=== PATIENT | female | born 1955 | race Caucasian/White ===

== ENCOUNTER 2016-05-14 11:30 | Emergency (ER) | payer MEDICARE ==
[2016-05-14] MEDS ORDERED: Adacel Vial IM ONE ×2 (11:34→12:45)
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
[2016-05-14 12:01] LABS: VBG BASE EXCESS 3.4 (-2.0-2.0); VBG CARBOXYHEMOGLOBIN 1.9 % T HGB (0.0-6.9); VBG HCO3- 29.6 meq/L (22-28); VBG HEMOGLOBIN 14.3; VBG O2 SATURATION 45.3 (95-100); VBG POTASSIUM 4.5 (3.5-5.1); VBG pH 7.38 (7.32-7.42)
[2016-05-14 12:13] LABS: BASOPHIL % 0.3 % (0.0-0.4); Eosinophil % 2.3 % (0.00-5.0); Granulocytes % 77.2 % (36.0-66.0); Lymphocytes % 13.2 % (24.0-44.0); Mean Cell Volume 85.8 fl (78-100); Mean Corpuscular Hemoglobin 25.8 pg (26-32); Mean Platelet Volume 9.4 fl (6-9.5); Platelet Count 221 K/mm3 (150-450); Red Blood Count 5.28 M/mm3 (4.1-5.4); Red Cell Distribution Width 18.6 % (11.5-14.0); White Blood Count 6.1 K/mm3 (4.0-10.5)
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
[2016-05-14 13:06] VITALS: BP 160/99; PULSE 89; O2SAT 97
[2016-05-14 14:04] LABS: ALBUMIN 3.6 g/dL (3.4-5.0); ANION GAP 14.2 MEQ/L (5-15); BILIRUBIN,TOTAL 0.5 mg/dL (0.2-1.0); Carbon Dioxide 28.2 mEq/L (21-32); Potassium 4.6 mEq/L (3.5-5.1); Total Protein 7.6 gm/dL (6.4-8.2)
== END 2016-05-14 13:05 | disposition home or self-care (01) ==
LOC: ED 11:30
DX: S80.12XA Contusion of left lower leg, initial encounter (principal); S00.93XA Contusion of unspecified part of head, initial encounter; S63.602A Unspecified sprain of left thumb, initial encounter; V54.5XXA Driver of pick-up truck or van injured in collision with heavy transport vehicle or bus in traffic accident, initial encounter; R73.03 Prediabetes; I10 Essential (primary) hypertension
CPT/HCPCS: 36000; 36415; 70450; 71010; 72125; 73130; 73590; 80053; 82805; 82947; 85025; 90471; 90715; 93041; 99285

== ENCOUNTER 2019-06-25 20:50 | Observation (INO) | payer MEDICARE ==
--- NOTE | 2019-06-25 20:53 | ERPHSYRPT ---
- History of Present Illness Time Seen by Provider: 06/25/19 21:10 Source: patient Exam Limitations: no limitations Physician History: Patient is a 64-year-old female presents to our ED via EMS for evaluation of near syncopal episode. Patient states she is been feeling nauseous and quite sick over the past several days. Patient saw her primary care doctor a few days ago for the same. Patient was given a dose of antibiotics. Patient was advised if she did not feel any better to come to our ED. Patient is here today because she has been feeling dizzy and near syncopal. Patient denies syncope and collapse. Patient symptoms are mild to moderate intensity. No specific worsening or improving factors. Patient is a diabetic. She has a history of hypertension. Patient has been taking all medications as recommended. No associated nausea or vomiting. No diarrhea. No chest pain or shortness of breath. Patient states she has not been drinking as much as usual. Patient states she has been urinating frequently. Patient states that she has been drinking less because she does not want to urinate as frequently as she has been. No associated fever. Patient voices no other complaint at this time. Patient advises staff that she lives alone with her dog. Witnessed: unwitnessed Prior Episodes: single episode today Timing/Duration: today Precipitating Factors: none Context: standing Loss of Consciousness: no loss of consciousness Charcter of event(s): felt faint, almost passed out Allergies/Adverse Reactions: No Known Drug Allergies Allergy (Unverified 06/25/19 21:18) Home Medications: Glimepiride 4 mg [Amaryl 4 mg] 4 mg PO DAILY 06/25/19 [History] Rosuvastatin Calcium 10 mg PO DAILY 06/25/19 [History] lisinopriL [Lisinopril] 5 mg PO DAILY 06/25/19 [History] Hx Tetanus, Diphtheria Vaccination/Date Given: No Hx Influenza Vaccination/Date Given: No Hx Pneumococcal Vaccination/Date Given: No - Past Medical History Pertinent Past Medical History: Yes Cardiac History: Hypertension Endocrine Medical History: Diabetes Type II (pre) GI Medical History: Other Other Medical History: COLON CANCER - Past Surgical History Past Surgical History: Yes Gastrointestinal: Colon Resection Female Surgical History: Hysterectomy - Social History Smoking Status: Never smoker Exposure to second hand smoke: No Drug Use: none Patient Lives Alone: No (here with a friend) Significant Family History: diabetes, hypertension - Review of Systems Constitutional: No Symptoms, No Fever, No Chills Eyes: No Symptoms Ears, Nose, & Throat: No Symptoms Respiratory: No Symptoms, No Cough, No Dyspnea Cardiac: No Symptoms, No Chest Pain, No Edema, No Syncope Abdominal/Gastrointestinal: No Symptoms, No Abdominal Pain, No Nausea, No Vomiting, No Diarrhea Genitourinary Symptoms: No Symptoms, No Dysuria Musculoskeletal: No Symptoms, No Back Pain, No Neck Pain Skin: No Symptoms, No Rash Neurological: No Symptoms, Dizziness, No Focal Weakness, No Parasthesia, No Sensory Changes, No Tremors Psychological: No Symptoms Endocrine: No Symptoms Hematologic/Lymphatic: No Symptoms Immunological/Allergic: No Symptoms All Other Systems: Reviewed and Negative Physical Exam - Nursing Vital Signs Nursing Vital Signs: Initial Vital Signs Temperature 97.9 F 06/25/19 20:59 Pulse Rate 80 06/25/19 20:59 Respiratory Rate 18 06/25/19 20:59 Blood Pressure 156/82 06/25/19 20:59 O2 Sat by Pulse Oximetry 100 06/25/19 20:59 Pain Scale Pain Intensity 0 - [place] Coma Scale Best Eye Response ([place]): (4) open spontaneously Best Verbal Response ([place]): (5) oriented Best Motor Response ([place]): (6) obeys commands [place] Total: 15 - Physical Exam General Appearance: no apparent distress, alert Eye Exam: bilateral eye: normal inspection, PERRL, EOMI Ears, Nose, Throat Exam: normal ENT inspection, pharynx normal, dry mucous membranes (Dry appearing oral mucous membranes.) Neck Exam: normal inspection, non-tender, supple, full range of motion Respiratory: normal breath sounds, lungs clear, No chest tenderness, No respiratory distress Cardiovascular: regular rate/rhythm, normal heart sounds, normal peripheral pulses, capillary refill <2 sec, No murmur, No pulse deficit Gastrointestinal: soft, No tenderness, No distention, No mass Rectal Exam: deferred Back Exam: normal inspection, normal range of motion, No CVA tenderness, No vertebral tenderness Extremity Exam: normal inspection, normal range of motion, pelvis stable, No tenderness Peripheral Pulses: dorsalis-pedis (R): 2+, dorsalis-pedis (L): 2+ Mental Status: alert, oriented x 3, 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 No opacity. No consolidation. No pleural effusion. No pneumothorax.), Reviewed by me - CT Exams Head CT Interpretation: Tele-radiologist Report (CT head negative for acute intracranial pathology.) Ordered Tests: Active Orders 24 hr Category Date Time Status Hospice Community Liaison STAT Care 06/25/19 20:54 Active EKG-ER Only STAT Care 06/25/19 20:53 Active IV Insertion STAT Care 06/25/19 20:53 Active Isolation, Initiate & Maintain Q4H Care 06/25/19 21:17 Active Pulse Oximetry (ED) STAT Care 06/25/19 20:53 Active CHEST 1 VIEW (PORTABLE) Stat Exams 06/25/19 20:54 Taken HEAD WITHOUT CONTRAST [CT] Stat Exams 06/25/19 21:16 Taken ACETAMINOPHEN Stat Lab 06/25/19 21:00 Completed CBC W DIFF Stat Lab 06/25/19 21:12 Completed CMP Stat Lab 06/25/19 21:12 Completed CULTURE,URINE Stat Lab 06/25/19 22:49 Received ETHYL ALCOHOL Stat Lab 06/25/19 21:00 Completed Manual Differential NC Stat Lab 06/25/19 21:12 Completed SALICYLATE Stat Lab 06/25/19 21:00 Completed TROPONIN Q3H Lab 06/25/19 21:12 Completed TROPONIN Q3H Lab 06/26/19 00:00 Ordered TROPONIN Q3H Lab 06/26/19 03:00 Ordered TROPONIN Q3H Lab 06/26/19 06:00 Ordered TROPONIN Q3H Lab 06/26/19 09:00 Ordered UA W/RFX UR CULTURE Stat Lab 06/25/19 22:49 Completed Urine Triage Profile Stat Lab 06/25/19 22:49 Completed Transfer Order Routine Transfer 06/25/19 Ordered Medication Summary Generic Name Dose Route Start Last Admin Trade Name Freq PRN Reason Stop Dose Admin Sodium Chloride 500 mls @ 500 mls/hr 06/25/19 22:39 06/25/19 22:41 Sodium Chloride 0.9% 500 Ml IV 06/25/19 23:38 500 mls/hr .Q1H ONE Administration Ceftriaxone Sodium/Dextrose 1 g in 50 mls @ 100 mls/hr 06/25/19 23:17 23:20 Rocephin 1 Gm-D5w 50 Ml Bag IV 06/25/19 23:46 100 mls/hr STAT STA 100 mls/hr Administration Discontinued Medications Generic Name Dose Route Start Last Admin Trade Name Adrianne PRN Reason Stop Dose Admin Sodium Chloride Confirm 06/25/19 22:40 Sodium Chloride 0.9% 500 Ml Administered 06/25/19 22:41 Dose 500 mls @ ud IV .STK-MED ONE Ceftriaxone Sodium/Dextrose Confirm 06/25/19 23:18 Rocephin 1 Gm-D5w 50 Ml Bag Administered 06/25/19 23:19 Dose 1 g in 50 mls @ ud IV .STK-MED ONE Lab/Rad Data: Laboratory Result Diagrams 06/25/19 21:12 06/25/19 21:12 Laboratory Results 06/25/19 06/25/19 06/25/19 Range/Units 22:49 22:49 21:12 WBC (4.0-10.5) K/mm3 RBC (4.1-5.4) M/mm3 Hgb (12.0-16.0) gm/dl Hct (35-47) % MCV (78-100) fl MCH (26-32) pg MCHC (32-36) g/dl RDW (11.5-14.0) % Plt Count (150-450) K/mm3 MPV (7.5-11.0) fl Segmented Neutrophils (36.0-66.0) % Lymphocytes (Manual) (24-44) % Monocytes (Manual) (0.0-12.0) % Eosinophils (Manual) (0.00-3.0) % Platelet Estimate (NORMAL) RBC Morphology Sodium (137-145) mmol/L Potassium (3.5-5.1) mmol/L Chloride (98-107) mmol/L Carbon Dioxide (22-30) mmol/L Anion Gap (5-15) MEQ/L BUN (7-17) mg/dL Creatinine (0.52-1.04) mg/dL Estimated GFR ML/MIN Glucose (74-106) mg/dL Calcium (8.4-10.2) mg/dL Total Bilirubin (0.2-1.3) mg/dL AST (14-36) U/L ALT (0-35) U/L Alkaline Phosphatase (38-126) U/L Troponin I 0.017 (0.000-0.034) ng/mL Serum Total Protein (6.3-8.2) g/dL Albumin (3.5-5.0) g/dL Urine Color YELLOW (YELLOW) Urine Appearance TURBID (CLEAR) Urine pH 5.0 (5-6) Ur Specific [place] 1.015 (1.005-1.025) Urine Protein 100 (Negative) Urine Ketones NEGATIVE (NEGATIVE) Urine Blood LARGE (0-5) Nima/ul Urine Nitrite NEGATIVE (NEGATIVE) Urine Bilirubin NEGATIVE (NEGATIVE) Urine Urobilinogen NEGATIVE (0-1) mg/dL Ur Leukocyte Esterase LARGE (NEGATIVE) Urine WBC (Auto) >100 (0-5) /HPF Urine RBC (Auto) >101 (0-2) /HPF U Epithel Cells (Auto) RARE (FEW) /HPF Urine Bacteria (Auto) RARE (NEGATIVE) /HPF U Non-Squamous Epi Cells RARE (FEW) /HPF Unidentified Crystals 2-5 (NEGATIVE) /HPF Urine Culture Reflexed YES (NO) Urine Glucose 150 (NEGATIVE) mg/dL Salicylates (2-20) mg/dL Urine Opiates Level NEGATIVE (NEGATIVE) Ur Methadone NEGATIVE (NEGATIVE) Acetaminophen (10-30) ug/ml Urine Barbiturates NEGATIVE (NEGATIVE) Ur Phencyclidine (PCP) NEGATIVE (NEGATIVE) Urine Amphetamine NEGATIVE (NEGATIVE) U Benzodiazepine Level NEGATIVE (NEGATIVE) Urine Cocaine NEGATIVE (NEGATIVE) Urine Marijuana (THC) POSITIVE (NEGATIVE) Ethyl Alcohol (0-10) mg/dL 06/25/19 06/25/19 06/25/19 Range/Units 21:12 21:12 21:00 WBC 10.7 H (4.0-10.5) K/mm3 RBC 3.95 L (4.1-5.4) M/mm3 Hgb 12.1 (12.0-16.0) gm/dl Hct 38.4 (35-47) % MCV 97.2 (78-100) fl MCH 30.6 (26-32) pg MCHC 31.5 L (32-36) g/dl RDW 15.1 H (11.5-14.0) % Plt Count 300 (150-450) K/mm3 MPV 8.8 (7.5-11.0) fl Segmented Neutrophils 84 H (36.0-66.0) % Lymphocytes (Manual) 10 L (24-44) % Monocytes (Manual) 5 (0.0-12.0) % Eosinophils (Manual) 1 (0.00-3.0) % Platelet Estimate NORMAL (NORMAL) RBC Morphology NORMAL Sodium 140 (137-145) mmol/L Potassium 5.2 H (3.5-5.1) mmol/L Chloride 112 H (98-107) mmol/L Carbon Dioxide 14 L* (22-30) mmol/L Anion Gap 20.0 H (5-15) MEQ/L BUN 53 H (7-17) mg/dL Creatinine 3.79 H (0.52-1.04) mg/dL Estimated GFR 12.7 ML/MIN Glucose 209 H (74-106) mg/dL Calcium 10.1 (8.4-10.2) mg/dL Total Bilirubin 0.50 (0.2-1.3) mg/dL AST 17 (14-36) U/L ALT 14 (0-35) U/L Alkaline Phosphatase 103 (38-126) U/L Troponin I (0.000-0.034) ng/mL Serum Total Protein 8.5 H (6.3-8.2) g/dL Albumin 4.5 (3.5-5.0) g/dL Urine Color (YELLOW) Urine Appearance (CLEAR) Urine pH (5-6) Ur Specific [place] (1.005-1.025) Urine Protein (Negative) Urine Ketones (NEGATIVE) Urine Blood (0-5) [place] Urine Nitrite (NEGATIVE) Urine Bilirubin (NEGATIVE) Urine Urobilinogen (0-1) mg/dL Ur Leukocyte Esterase (NEGATIVE) Urine WBC (Auto) (0-5) /HPF Urine RBC (Auto) (0-2) /HPF U Epithel Cells (Auto) (FEW) /HPF Urine Bacteria (Auto) (NEGATIVE) /HPF U Non-Squamous Epi Cells (FEW) /HPF Unidentified Crystals (NEGATIVE) /HPF Urine Culture Reflexed (NO) Urine Glucose (NEGATIVE) mg/dL Salicylates 1.1 L (2-20) mg/dL Urine Opiates Level (NEGATIVE) Ur Methadone (NEGATIVE) Acetaminophen < 10 L (10-30) ug/ml Urine Barbiturates (NEGATIVE) Ur Phencyclidine (PCP) (NEGATIVE) Urine Amphetamine (NEGATIVE) U Benzodiazepine Level (NEGATIVE) Urine Cocaine (NEGATIVE) Urine Marijuana (THC) (NEGATIVE) Ethyl Alcohol < 10 (0-10) mg/dL - Progress Progress: improved Progress Note: Patient reassessed. She feels somewhat better. Potassium 5.2. Patient has an anion gap acidosis of 20. Acute renal injury was observed on her lab work-up. Patient is dehydrated. She has not been drinking normally. IV fluids infused. Glucose is 209. UTI observed on urinalysis. 1 g Rocephin administered. Talk screen positive for marijuana use. Case discussed with Dr. Rogers who accepts admission to observation. Plan of care discussed with patient. She agrees admission to [facility] for further evaluation and treatment. 06/25/19 23:43 Discussed with : Sima Will see patient in: hospital (observation) Counseled pt/family regarding: lab results, diagnosis, rad results, smoking cessation - Departure Departure Disposition: Observation Clinical Impression: UTI (urinary tract infection), Near syncope, High anion gap metabolic acidosis , Acute renal injury, Hyperglycemia, Marijuana use Condition: Stable Critical Care Time: No Referrals: ANIL LEÓN [Primary Care Provider] -
[2019-06-25 21:16] LABS: Hematocrit 38.4 % (35-47); Hemoglobin 12.1 gm/dl (12.0-16.0); Mean Cell Volume 97.2 fl (78-100); Mean Corpuscular Hemoglobin 30.6 pg (26-32); Mean Corpuscular Hgb Concent. 31.5 g/dl (32-36); Mean Platelet Volume 8.8 fl (7.5-11.0); Platelet Count 300 K/mm3 (150-450); Red Blood Count 3.95 M/mm3 (4.1-5.4); Red Cell Distribution Width 15.1 % (11.5-14.0); White Blood Count 10.7 K/mm3 (4.0-10.5)
[2019-06-25 21:29] LABS: ALBUMIN 4.5 g/dL (3.5-5.0); BILIRUBIN,TOTAL 0.5 mg/dL (0.2-1.3); Calcium 10.1 mg/dL (8.4-10.2); Creatinine 1 3.79 mg/dL (0.52-1.04); Potassium 5.2 mmol/L (3.5-5.1); Total Protein 8.5 g/dL (6.3-8.2)
[2019-06-25] MEDS ORDERED: Sodium Chloride 0.9% 500 ML 500 ML IV ONE ×2 (22:39→22:40)
[2019-06-25 22:47] LABS: Eosinophil 1 % (0.00-3.0); Lymphocytes 10 % (24-44); Monocyte 5 % (0.0-12.0); Neutrophils 84 % (36.0-66.0); Total Cells Counted 100
[2019-06-25 22:48] LABS: Platelet Estimate NORMAL (NORMAL)
[2019-06-25 22:51] LABS: ACETAMINOPHEN < 10 ug/ml (10-30); ETHYL ALCOHOL < 10 mg/dL (0-10); SALICYLATE 1.1 mg/dL (2-20)
[2019-06-25 23:02] LABS: Appearance TURBID (CLEAR); Bacteria RARE /HPF (NEGATIVE); Bilirubin NEGATIVE (NEGATIVE); Blood LARGE Ery/ul (0-5); Epithelial Cells RARE /HPF (FEW); Glucose 150 mg/dL (NEGATIVE); Ketones NEGATIVE (NEGATIVE); Leukocyte Esterase LARGE (NEGATIVE); Nitrite NEGATIVE (NEGATIVE); Non-Squamous Epithelial Cells RARE /HPF (FEW); Protein,Urine Dip 100 (Negative); RBC >101 /HPF (0-2); Specific Gravity 1.015 (1.005-1.025); Urobilinogen NEGATIVE mg/dL (0-1); WBC >100 /HPF (0-5)
[2019-06-25 23:09] LABS: Amphetamine,Urine NEGATIVE (NEGATIVE); Barbiturate,Urine NEGATIVE (NEGATIVE); Benzodiazepine,Urine NEGATIVE (NEGATIVE); Cocaine,Urine NEGATIVE (NEGATIVE); Methadone,Urine NEGATIVE (NEGATIVE); Opiate,Urine NEGATIVE (NEGATIVE); PCP,Urine NEGATIVE (NEGATIVE); THC,Urine POSITIVE (NEGATIVE)
[2019-06-25] MEDS ORDERED: ROCEPHIN 1 Gm-D5w 50 ml Bag** 1 G/50 ML IVPB IV STA (23:17)
[2019-06-25] MEDS ORDERED: ROCEPHIN 1 Gm-D5w 50 ml Bag** 1 G/50 ML IVPB IV ONE (23:18)
[2019-06-26] MEDS ORDERED: Sodium Chloride 0.9% 1000 ML 1,000 ML IV SCH (00:28)
[2019-06-26 03:40] LABS: ALBUMIN 3.9 g/dL (3.5-5.0); ANION GAP 16.6 MEQ/L (5-15); BILIRUBIN,TOTAL 0.4 mg/dL (0.2-1.3); Calcium 9.4 mg/dL (8.4-10.2); Creatinine 1 3.52 mg/dL (0.52-1.04); Potassium 5.1 mmol/L (3.5-5.1); Total Protein 7.4 g/dL (6.3-8.2)
[2019-06-26 03:55] LABS: Hematocrit 34.3 % (35-47); Hemoglobin 10.9 gm/dl (12.0-16.0); Mean Cell Volume 97.4 fl (78-100); Mean Corpuscular Hgb Concent. 31.8 g/dl (32-36); Platelet Count 269 K/mm3 (150-450); Red Blood Count 3.52 M/mm3 (4.1-5.4); Red Cell Distribution Width 14.9 % (11.5-14.0); White Blood Count 10.2 K/mm3 (4.0-10.5)
[2019-06-26 05:34] LABS: BAND 4 % (0.0-2.0); Basophil 1 % (0.0-1.0); Lymphocytes 12 % (24-44); Monocyte 3 % (0.0-12.0); Neutrophils 80 % (36.0-66.0); Total Cells Counted 100
[2019-06-26 05:35] LABS: Platelet Estimate NORMAL (NORMAL)
--- NOTE | 2019-06-26 07:37 | XRAY ---
Indication: Dizziness. No known injury. Multiple contiguous axial images obtained through the head without contrast. Comparison: May 14, 2016. Ventriculosulcal pattern appears symmetric. No acute intracranial hemorrhage, abnormal extra-axial fluid collection, or mass effect. Fourth ventricle is midline without hydrocephalus. Peterson-white matter differentiation preserved. Bony calvarium intact. Visualized paranasal sinuses and mastoid air cells are clear. Impression: Continued negative CT head without contrast exam.
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
[2019-06-26] MEDS ORDERED: Zestril 5 MG PO SCH (10:00)
[2019-06-26] MEDS ORDERED: HUMALOG SQ PRN (10:25)
[2019-06-26] MEDS: AMARYL 4 MG PO SCH ×2 (10:25→10:55)
[2019-06-26] MEDS: ZOCOR 20MG PO SCH ×2 (10:25→10:55)
[2019-06-26] MEDS ORDERED: AMARYL 4 MG PO SCH (15:00)
[2019-06-26] MEDS ORDERED: ZOCOR 20MG PO SCH (22:00)
[2019-06-26] MEDS ORDERED: ROCEPHIN 1 Gm-D5w 50 ml Bag** 1 G/50 ML IVPB IV SCH (22:00)
[2019-06-27 05:53] LABS: Hematocrit 29.8 % (35-47); Hemoglobin 9.5 gm/dl (12.0-16.0); Mean Cell Volume 97.4 fl (78-100); Mean Corpuscular Hgb Concent. 31.9 g/dl (32-36); Mean Platelet Volume 8.8 fl (7.5-11.0); Platelet Count 211 K/mm3 (150-450); Red Blood Count 3.06 M/mm3 (4.1-5.4); Red Cell Distribution Width 14.8 % (11.5-14.0); White Blood Count 8.8 K/mm3 (4.0-10.5)
[2019-06-27 06:12] LABS: ALBUMIN 3.2 g/dL (3.5-5.0); ANION GAP 12.8 MEQ/L (5-15); BILIRUBIN,TOTAL 0.3 mg/dL (0.2-1.3); Calcium 8.4 mg/dL (8.4-10.2); Creatinine 1 2.55 mg/dL (0.52-1.04); Potassium 4.6 mmol/L (3.5-5.1); Total Protein 6.2 g/dL (6.3-8.2)
[2019-06-27 07:15] VITALS: BP 144/66; PULSE 73; O2SAT 99
[2019-06-27 08:29] LABS: Eosinophil 4 % (0.00-3.0); Lymphocytes 7 % (24-44); Monocyte 5 % (0.0-12.0); Neutrophils 84 % (36.0-66.0); Total Cells Counted 100
[2019-06-27 08:30] LABS: Platelet Estimate NORMAL (NORMAL)
--- NOTE | 2019-06-28 09:18 | HP ---
CHIEF COMPLAINT: Near syncopal episode. HISTORY OF PRESENT ILLNESS: The patient is a 64 year-old white female who reports she has been having nausea issues and feeling quite sick over the past several days. The patient noted increase in frequency of urination so she stopped drinking so she would not have to go to the bathroom. The patient was evaluated in the emergency room and found to have acute renal injury and was admitted to the hospital for IV fluids and also appeared that she might have a urinary tract infection. The patient reports her primary care doctor is Dr. Saldana. PAST MEDICAL/SURGICAL HISTORY: Significant for diabetes mellitus type 2, hypertension. She previously had colon cancer and a colon resection in 2014 with no chemotherapy. HOME MEDICATIONS: Amaryl 4 mg a day, lovastatin 10 mg a day, lisinopril 5 mg a day. ALLERGIES: NKDA. PHYSICAL EXAMINATION: Her vital signs on admission showed her temperature 97.9F, pulse 80, respiratory rate 18 and blood pressure 156/82. O2 saturations 100%. HEENT: Normocephalic, atraumatic. Pupils equal round reactive to light. Extraocular movements intact. Oropharynx is pink and moist. NECK: Supple without lymphadenopathy, thyromegaly or JVD. CHEST: Clear to auscultation. HEART: Regular rate and rhythm. ABDOMEN: Soft. No palpable masses. EXTREMITIES: Without cyanosis, clubbing or edema. NEUROLOGIC: The patient is alert and oriented x3. LAB DATA AND TESTS: The patient's rhythm on telemetry was sinus rhythm with rate of 73. Chest x-ray showed no acute process. CT scan of the head was negative. The patient's lab studies otherwise showed her ETOH, salicylate and acetaminophen to be negative. Her white count was 10,700, hemoglobin was 12.1, PLT count 300,000 with 84 polys, 0 bands. Urine drug screen was positive for THC. Her UA with large leukocytes, greater than 100 white blood cells and greater than 100 red blood cells per high power field. Her sugar was 209, BUN 53, creatinine 3.79, potassium 5.2, bicarb was low at 14. Liver enzymes were normal. Troponin was 0.017. ASSESSMENT: A patient with near syncopal episode due likely to dehydration. She was noted to have what appears to be acute renal injury. 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 The patient has been admitted for fluid hydration. We will check her lactic acid and A1C levels. She has been placed empirically on Rocephin for what appears to be urinary tract infection with urine culture now pending. We will also obtain a nephrology consult due to the patient's acute renal injury to gain advice on further evaluation and management. We will also obtain a 24-hour urine for protein and creatinine clearance.
--- NOTE | 2019-06-28 13:32 | DS ---
DISCHARGE DIAGNOSIS: ACUTE RENAL INJURY. HOSPITAL COURSE: At the time of discharge the patient walked out AMA. She was brought into the hospital for apparent acute kidney injury with a creatinine of almost 4. She stayed the night at which time we gave her IV fluids at 250 cc/hour. By the next morning her creatinine was down to 2.55. Her BUN was better and her bicarb was actually less at 13. The patient has very poor insight and is noncompliant and argumentative and at this time is refusing to stay and essentially walked out AMA despite our attempts of pleading her to stay. Unfortunately the patient had a consultation requested by nephrology who over the weekend did not and see the patient and reported that they would see her on Friday complicating the problem. The patient also had a 24 hour urine requested and unfortunately in this so we had to restart the 24 hour urine and this could not be completed by the time the patient walked out.
== END 2019-06-27 11:25 | disposition left against medical advice (07) ==
LOC: ED 20:50 → MED SURG 06-26 00:20
PROVIDERS: ADMIT Family Medicine; ATTEND Family Medicine
DX: N17.9 Acute kidney failure, unspecified (principal); E11.9 Type 2 diabetes mellitus without complications; I10 Essential (primary) hypertension; N39.0 Urinary tract infection, site not specified; Z85.038 Personal history of other malignant neoplasm of large intestine; Z79.899 Other long term (current) drug therapy
CPT/HCPCS: 36000; 36415; 70450; 71045; 80053; 80307; 81001; 82962; 83036; 83605; 84484; 85025; 87086; 93005; 93041; 93268; 94760; 96360; 96365; 99285; G0378; G0480; G0481; J0696; J1817; A9270-GY

== ENCOUNTER 2020-11-28 08:10 | Day surgery (SDC) | payer MEDICARE ==
[~2020-11-28 08:10] MED LIST: Ak-Dilate OPHTHALMIC*** 1.065 ML, Cyclogyl 1% OPHTH SOL 5 ML 1.065 ML, GATIFLOXACIN 0.5... OP ONE; BETADINE 5% OPHTHALMIC 30 ML OP ONE; Lactated Ringers 1,000 ML IV SCH; NON-FORMULARY ITEM OP ONE; TETRACAINE 0.5% STERI-UNIT SOL OP ONE; cefUROXime sodium 0.005 GM in Sodium Chloride Flush 30 ML*** 0.5 ML IJ SCH
[2020-11-28] MEDS ORDERED: PROVAYBLUE IV ONE (08:11)
[2020-11-28] MEDS ORDERED: LIDOCAINE HCL 1% 50 MG/5 ML VL PF IJ ONE (08:11)
[2020-11-28] MEDS ORDERED: Epinephrine Preservative Free 1 MG/ML IJ ONE (08:11)
[2020-11-28] MEDS ORDERED: Zofran 4 MG/2 ML VIAL IV PRN (09:00)
[2020-11-28] MEDS ORDERED: ACETAZOLAMIDE 250 MG TABLET PO ONE (09:00)
[2020-11-28] MEDS ORDERED: Lactated Ringers 1,000 ML IV ONE (09:06)
[2020-11-28] MEDS ORDERED: SUBLIMAZE 100 MCG/2 ML ONE (10:48)
[2020-11-28] MEDS ORDERED: Versed 2 MG/2 ML Injection ONE (10:48)
[2020-11-28] MEDS ORDERED: DIPRIVAN 200 MG/20 ML IV ONE (10:51)
[2020-11-28] MEDS ORDERED: Xylocaine-Mpf 2% 5 Ml Vial ONE (10:51)
[2020-11-28] MEDS ORDERED: PHENYLEPHRINE HCL ONE (11:11)
[2020-11-28 11:55] VITALS: PULSE 74; O2SAT 98
[2020-11-28 12:22] VITALS: BP 160/90
== END 2020-11-28 12:20 | disposition home or self-care (01) ==
LOC: SDC 08:10
PROVIDERS: ATTEND Ophthalmology
DX: H25.812 Combined forms of age-related cataract, left eye (principal); E11.9 Type 2 diabetes mellitus without complications; I10 Essential (primary) hypertension; Z79.899 Other long term (current) drug therapy
CPT/HCPCS: 66982; 82947; C1780; J0171; J2001; J2250; J2370; J2704; J3010; A9270-GY; Q9968

== ENCOUNTER 2021-01-30 07:01 | Day surgery (SDC) | payer MEDICARE ==
[~2021-01-30 07:01] MED LIST changes: +ACETAZOLAMIDE 250 MG TABLET PO ONE; +Zofran 4 MG/2 ML VIAL IV PRN; +cefUROXime sodium 0.005 GM in Sodium Chloride Flush 30 ML*** 0.5 ML IJ ONE; -cefUROXime sodium 0.005 GM in Sodium Chloride Flush 30 ML*** 0.5 ML IJ SCH
[2021-01-30] MEDS ORDERED: Epinephrine Preservative Free 1 MG/ML IJ ONE (07:02)
[2021-01-30] MEDS ORDERED: LIDOCAINE HCL 1% 50 MG/5 ML VL PF IJ ONE (07:02)
[2021-01-30] MEDS ORDERED: Lactated Ringers 1,000 ML IV ONE (07:20)
[2021-01-30] MEDS ORDERED: Visionblue IO ONE (09:00)
[2021-01-30] MEDS ORDERED: Versed 2 MG/2 ML Injection ONE ×2 (09:41→09:51)
[2021-01-30] MEDS ORDERED: SUBLIMAZE 100 MCG/2 ML ONE (09:50)
[2021-01-30 10:56] VITALS: O2SAT 98
[2021-01-30 10:58] VITALS: BP 122/76; PULSE 68
== END 2021-01-30 11:05 | disposition home or self-care (01) ==
LOC: SDC 07:01
PROVIDERS: ATTEND Ophthalmology
DX: H25.811 Combined forms of age-related cataract, right eye (principal); E11.9 Type 2 diabetes mellitus without complications; I10 Essential (primary) hypertension; Z79.899 Other long term (current) drug therapy
CPT/HCPCS: 66982; 82947; C1780; J0171; J2001; J2250; J3010; A9270-GY

== ENCOUNTER 2021-08-29 15:41 | Emergency (ER) | payer MEDICARE ==
[2021-08-29 15:56] VITALS: O2SAT 97
[2021-08-29] MEDS ORDERED: SUBLIMAZE 100 MCG/2 ML ONE (15:59)
[2021-08-29] MEDS: SUBLIMAZE 100 MCG/2 ML IV ONE (16:01)
[2021-08-29] MEDS ORDERED: Sodium Chloride 0.9% 1000 ML 1,000 ML ONE (16:04)
--- NOTE | 2021-08-29 16:04 | ERPHSYRPT ---
- History of Present Illness Time Seen by Provider: 08/29/21 15:55 Source: patient Exam Limitations: no limitations Patient Subjective Stated Complaint: left leg pain and numbness that started yesterday 08/25/21 Triage Nursing Assessment: pt. complains of pain to left leg - left upper thigh tender and warm to touch, left calf and foot discolored and cool to touch. weak pulse LLE Physician History: Patient is a 66-year-old white female who gives a history for what sounds like intermittent claudication for some time. Yesterday at 930 she was walking home from a friend's house and developed severe pain in the left leg which has continued. She has noted the leg to be discolored and cold to the touch. She is a diabetic she is on glipizide she also hypertensive on lisinopril and has hyperlipidemia and is on a statin for that. Timing/Duration: yesterday Activities at Onset: none Quality: throbbing Location: other (Left lower extremity) Severity of Pain-Max: severe Severity of Pain-Current: severe Modifying Factors: Improves With: nothing Nitro Today/Relief: no nitro taken today Aspirin Treatment Today: no aspirin today Allergies/Adverse Reactions: No Known Drug Allergies Allergy (Verified 01/30/21 07:34) Home Medications: Glimepiride 4 mg [Amaryl 4 mg] 4 mg PO DAILY 06/25/19 [History] Rosuvastatin Calcium 10 mg PO HS 06/25/19 [History] lisinopriL [Lisinopril] 5 mg PO DAILY 06/25/19 [History] Vitamin E 400 unit PO DAILY 11/22/20 [History] Hx Tetanus, Diphtheria Vaccination/Date Given: No Hx Influenza Vaccination/Date Given: No Hx Pneumococcal Vaccination/Date Given: No Travel Risk - International Travel Have you traveled outside of the country in past 3 weeks: No - Coronavirus Screening Are you exhibiting any of the following symptoms?: No Close contact with a COVID-19 positive Pt in past 14-21 Days: No - Vaccine Status Have you recieved a Covid-19 vaccination: 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[email or web address] - Review of Systems Constitutional: No Fever, No Chills Eyes: No Symptoms Ears, Nose, & Throat: No Symptoms Respiratory: No Cough, No Dyspnea Cardiac: No Chest Pain, No Edema, No Syncope Abdominal/Gastrointestinal: No Abdominal Pain, No Nausea, No Vomiting, No Diarrhea Genitourinary Symptoms: No Dysuria Musculoskeletal: Other (Left leg is painful), No Back Pain, No Neck Pain Skin: No Rash Neurological: No Dizziness, No Focal Weakness, No Sensory Changes Psychological: No Symptoms Endocrine: No Symptoms All Other Systems: Reviewed and Negative - Past Medical History Pertinent Past Medical History: Yes Neurological History: No Pertinent History ENT History: Cataracts Cardiac History: High Cholesterol, Hypertension Respiratory History: No Pertinent History Endocrine Medical History: Diabetes Type II Musculoskeletal History: Arthritis GI Medical History: Colorectal Cancer, Other History: Renal Disease Psycho-Social History: No Pertinent History Female Reproductive Disorders: Other Other Medical History: COLON CANCER. 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 - Past Surgical History Past Surgical History: Yes Neuro Surgical History: No Pertinent History Cardiac: No Pertinent History Respiratory: No Pertinent History Gastrointestinal: Colon Resection Genitourinary: No Pertinent History Musculoskeletal: No Pertinent History Female Surgical History: Hysterectomy - Social History Smoking Status: Never smoker Exposure to second hand smoke: No Drug Use: none Patient Lives Alone: No Significant Family History: diabetes, hypertension - Nursing Vital Signs Nursing Vital Signs: Initial Vital Signs Pulse Rate 114 H 08/29/21 15:48 Respiratory Rate 22 08/29/21 15:48 Blood Pressure 180/122 08/29/21 15:48 O2 Sat by Pulse Oximetry 97 08/29/21 15:48 Pain Scale Pain Intensity 10 - Physical Exam General Appearance: moderate distress, alert Eye Exam: PERRL/EOMI, eyes nml inspection Ears, Nose, Throat Exam: normal ENT inspection, moist mucous membranes Neck Exam: normal inspection, non-tender, supple Respiratory Exam: normal breath sounds, lungs clear, No respiratory distress Cardiovascular Exam: regular rate/rhythm, normal heart sounds, No edema Gastrointestinal/Abdomen Exam: soft, No tenderness, No mass Back Exam: normal inspection, No CVA tenderness, No vertebral tenderness Extremity Exam: other (Focus on the left lower extremity shows it to be dusky in color cold to the touch and no palpable pulses are can be ascertained as well as no pulses with the Doppler.) Neurologic Exam: alert, oriented x 3, cooperative, normal mood/affect, nml cerebellar function, sensation nml, No motor deficits Skin Exam: normal color, warm, dry Lymphatic Exam: No adenopathy SpO2: 97 - Course Nursing assessment & vital signs reviewed: Yes EKG Interpreted by Me: RATE (102 ), Sinus Tach, NORMAL AXIS, Other (Poor R wave progression) - Radiology Ultrasound Exam Arterial Lower Extremity Ultrasound: Other (Left lower extremity arterial work-up showed acute left lower extremity arterial occlusion. SUSY 0.51) Ordered Tests: Active Orders 24 hr Category Date Time Status EKG-ER Only STAT Care 08/29/21 15:50 Active IV Insertion STAT Care 08/29/21 15:50 Active ARTERIAL UNILAT/LTD LOWER EXT [US] Stat Exams 08/29/21 16:26 Taken AMYLASE Stat Lab 08/29/21 15:55 Completed CBC W DIFF Stat Lab 08/29/21 15:55 Results CMP Stat Lab 08/29/21 15:55 Completed D-DIMER QUANTITATIVE Stat Lab 08/29/21 15:55 Received Erythrocyte Sedimentation Rate Stat Lab 08/29/21 15:55 Results Lactic Acid Stat Lab 08/29/21 15:50 Completed PROTIME WITH INR Stat Lab 08/29/21 15:55 Received PTT Stat Lab 08/29/21 15:55 Received TROPONIN Q3H Lab 08/29/21 15:55 Received TROPONIN Q3H Lab 08/29/21 19:00 Ordered TROPONIN Q3H Lab 08/29/21 22:00 Ordered TROPONIN Q3H Lab 08/30/21 01:00 Ordered TROPONIN Q3H Lab 08/30/21 04:00 Ordered UA W/RFX CULTURE Stat Lab 08/29/21 Ordered Medication Summary Generic Name Dose Route Start Last Admin Trade Name Freq PRN Reason Stop Dose Admin Sodium Chloride 1,000 mls @ 200 mls/hr 08/29/21 16:00 08/29/21 16:06 Sodium Chloride 0.9% 1000 Ml IV 09/28/21 15:59 200 mls/hr .Q5H LYNNE Administration Discontinued Medications Generic Name Dose Route Start Last Admin Trade Name Freq PRN Reason Stop Dose Admin Fentanyl Citrate 75 mcg 08/29/21 15:50 08/29/21 16:01 Fentanyl Citrate 100 Mcg/2 Ml* Vial IV 08/29/21 15:51 75 mcg STAT ONE Administration Fentanyl Citrate Confirm 08/29/21 15:59 Fentanyl Citrate 100 Mcg/2 Ml* Vial Administered 08/29/21 16:00 Dose 100 mcg .ROUTE [employer] Lab/Rad Data: Laboratory Result Diagrams 08/29/21 15:55 08/29/21 15:55 Laboratory Results 08/29/21 08/29/21 08/29/21 Range/Units 15:55 15:55 15:50 WBC 11.8 H (4.0-10.5) x10^3/uL RBC 5.70 H (4.1-5.4) x10^6/uL Hgb 17.1 H (12.0-16.0) g/dL Hct 51.2 H (35-47) % MCV 89.8 (78-100) fL MCH 30.0 (26-32) pg MCHC 33.4 (32-36) g/dL RDW 13.2 (11.5-14.0) % Plt Count 228 (150-450) x10^3/uL MPV 9.7 (7.5-11.0) fL Gran % 81.4 H (36.0-66.0) % Immature Gran % (Auto) 0.9 H (0.00-0.4) % Nucleat RBC Rel Count 0.0 (0.00-0.1) % Eos # (Auto) 0.02 (0-0.5) x10^3/uL Immature Gran # (Auto) 0.10 H (0.00-0.03) x10^3u/L Absolute Lymphs (auto) 1.09 (1.0-4.6) x10^3/uL Absolute Monos (auto) 0.93 (0.0-1.3) x10^3/uL Absolute Nucleated RBC 0.00 (0.00-0.01) x10^3u/L Lymphocytes % 9.3 L (24.0-44.0) % Monocytes % 7.9 (0.0-12.0) % Eosinophils % 0.2 (0.00-5.0) % Basophils % 0.3 (0.0-0.4) % Absolute Granulocytes 9.58 H (1.4-6.9) x10^3/uL Basophils # 0.03 (0-0.4) x10^3/uL ESR Pending Sodium 131 L (137-145) mmol/L Potassium 5.0 (3.5-5.1) mmol/L Chloride 99 (98-107) mmol/L Carbon Dioxide 18 L (22-30) mmol/L Anion Gap 19.1 H (5-15) MEQ/L BUN 22 H (7-17) mg/dL Creatinine 1.33 H (0.52-1.04) mg/dL Estimated GFR 42.2 ML/MIN Glucose 369 H (74-106) mg/dL Lactic Acid 4.0 H (0.4-2.0) Calcium 9.8 (8.4-10.2) mg/dL Total Bilirubin 0.80 (0.2-1.3) mg/dL AST 128 H (14-36) U/L ALT 36 H (0-35) U/L Alkaline Phosphatase 134 H (38-126) U/L Serum Total Protein 7.8 (6.3-8.2) g/dL Albumin 4.1 (3.5-5.0) g/dL Amylase 70 (30-110) U/L - Progress Progress: unchanged Air Movement: good Blood Culture(s) Obtained: No Antibiotics given: No Discussed with Dr.: Other (Jose at [facility]. Dr. Smith was excepting physician Dr. Galeana is consulting.) - Departure Departure Disposition: Transfer Clinical Impression: Critical limb ischemia of left lower extremity Condition: Critical Critical Care Time: Yes Critical Care Time(excluding separately billable procedures): Critical 30-74 mins Referrals: ANIL LEÓN [Primary Care Provider] - Follow up/PCP as directed
[2021-08-29] MEDS: Sodium Chloride 0.9% 1000 ML 1,000 ML IV SCH (16:06)
[2021-08-29 16:18] LABS: Absolute Neutrophil Ct (ANC) 9.58 x10^3/uL (1.4-6.9); Basophil (Absolute #) 0.03 x10^3/uL (0-0.4); Eosinophil % 0.2 % (0.00-5.0); Eosinophil (Absolute #) 0.02 x10^3/uL (0-0.5); Hematocrit 51.2 % (35-47); Hemoglobin 17.1 g/dL (12.0-16.0); Lymphocyte (Absolute #) 1.09 x10^3/uL (1.0-4.6); Lymphocytes % 9.3 % (24.0-44.0); Mean Cell Volume 89.8 fL (78-100); Mean Corpuscular Hgb Concent. 33.4 g/dL (32-36); Mean Platelet Volume 9.7 fL (7.5-11.0); Monocyte (Absolute #) 0.93 x10^3/uL (0.0-1.3); Monocytes % 7.9 % (0.0-12.0); Neutrophil % 81.4 % (36.0-66.0); Platelet Count 228 x10^3/uL (150-450); Red Cell Distribution Width 13.2 % (11.5-14.0); White Blood Count 11.8 x10^3/uL (4.0-10.5)
[2021-08-29 16:27] LABS: ALBUMIN 4.1 g/dL (3.5-5.0); ANION GAP 19.1 MEQ/L (5-15); BILIRUBIN,TOTAL 0.8 mg/dL (0.2-1.3); Calcium 9.8 mg/dL (8.4-10.2); Creatinine 1 1.33 mg/dL (0.52-1.04); EST GLOMERULAR FILTRATION RATE 42.2 ML/MIN; Total Protein 7.8 g/dL (6.3-8.2)
[2021-08-29] MEDS ORDERED: Heparin 5000 UNITS/0.5 ML (HIGH RISK MED) ONE (16:32)
[2021-08-29 16:33] LABS: INR 1.02 (0.8-3.0); PROTIME 10.8 SECONDS (9.4-12.5)
--- NOTE | 2021-08-29 16:39 | XRAY ---
Indication: Left leg pain, discoloration, and pulseless. Ultrasound and color Doppler imaging of the major arteries of the left leg performed. Comparison: None No flow and absent arterial waveforms seen of the visualized common femoral, deep femoral, superficial femoral, popliteal, posterior tibial, and dorsal pedal arteries. Left arm brachial pressure is 163. Left ankle pressure is 89. Ankle brachial index is 0.51 favoring moderate ischemic disease Impression: No arterial flow seen of the visualized left leg vessels. Comment: Telephone report given to ordering clinician, Dr Hill at 1636 hrs on August 29, 2021.
[2021-08-29] MEDS: Heparin 5000 UNITS/0.5 ML (HIGH RISK MED) IV ONE (16:50)
[2021-08-29 16:51] LABS: PTT 25.2 SECONDS (25.1-36.5)
[2021-08-29 16:53] LABS: D-DIMER QUANTITATIVE 1.43 mg/L (0.0-0.50)
[2021-08-29 16:54] VITALS: BP 174/108; PULSE 110
[2021-08-29 17:23] LABS: Erythrocyte Sedimentation Rate 4 mm/hr (0-20)
== END 2021-08-29 16:45 | disposition short-term general hospital (02) ==
LOC: ED 15:41
DX: I70.222 Atherosclerosis of native arteries of extremities with rest pain, left leg (principal); M79.605 Pain in left leg; E78.5 Hyperlipidemia, unspecified; I10 Essential (primary) hypertension; E11.9 Type 2 diabetes mellitus without complications; Z79.84 Long term (current) use of oral hypoglycemic drugs; Z79.899 Other long term (current) drug therapy
CPT/HCPCS: 36000; 36415; 80053; 82150; 83605; 84484; 85025; 85379; 85610; 85652; 85730; 93926; 96374; 96375; 99284; J1644; J3010

== ENCOUNTER 2021-09-24 09:06 | Emergency (ER) | payer MEDICARE ==
--- NOTE | 2021-09-24 09:09 | ERPHSYRPT ---
- History of Present Illness Time Seen by Provider: 09/24/21 09:09 Source: patient Exam Limitations: no limitations Physician History: This is an obese diabetic white female patient who is 66 years old and has hypertension and presents for wound check and suture removal. Patient underwent bilateral femoral arterial bypass sometime the end of August 2021 which was over 15 days ago. She was post to follow-up in [place] where the procedure was performed to have wound recheck and suture removal. Patient states that she wants the sutures out and she cannot get to that appointment. Patient has not had a fever. Quality: burning Severity: mild Location: other (Bilateral inguinal regions) Possible Causes: other (Postop) Associated Symptoms: denies symptoms Allergies/Adverse Reactions: No Known Drug Allergies Allergy (Verified 09/24/21 09:18) Home Medications: Glimepiride 4 mg [Amaryl 4 mg] 4 mg PO DAILY 06/25/19 [History] Rosuvastatin Calcium 10 mg PO HS 06/25/19 [History] lisinopriL [Lisinopril] 5 mg PO DAILY 06/25/19 [History] Vitamin E 400 unit PO DAILY 11/22/20 [History] Hx Tetanus, Diphtheria Vaccination/Date Given: No Hx Influenza Vaccination/Date Given: No Hx Pneumococcal Vaccination/Date Given: No Travel Risk - International Travel Have you traveled outside of the country in past 3 weeks: No - Coronavirus Screening Are you exhibiting any of the following symptoms?: No Close contact with a COVID-19 positive Pt in past 14-21 Days: No - Vaccine Status Have you recieved a Covid-19 vaccination: 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[employer] - Review of Systems Constitutional: No Symptoms Eyes: No Symptoms Ears, Nose, & Throat: No Symptoms Respiratory: No Symptoms Cardiac: No Symptoms Abdominal/Gastrointestinal: No Symptoms Genitourinary Symptoms: No Symptoms Musculoskeletal: No Symptoms Skin: Other (Bilateral inguinal region sutures that the patient wants removed.) Neurological: No Symptoms Psychological: No Symptoms Endocrine: No Symptoms Hematologic/Lymphatic: No Symptoms Immunological/Allergic: No Symptoms All Other Systems: Reviewed and Negative - Past Medical History Pertinent Past Medical History: Yes Neurological History: No Pertinent History ENT History: Cataracts Cardiac History: High Cholesterol, Hypertension Respiratory History: No Pertinent History Endocrine Medical History: Diabetes Type II Musculoskeletal History: Arthritis GI Medical History: Colorectal Cancer, Other History: Renal Disease Psycho-Social History: No Pertinent History Female Reproductive Disorders: Other Other Medical History: COLON CANCER. 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 - Past Surgical History Past Surgical History: Yes Neuro Surgical History: No Pertinent History Cardiac: No Pertinent History Respiratory: No Pertinent History Gastrointestinal: Colon Resection Genitourinary: No Pertinent History Musculoskeletal: No Pertinent History Female Surgical History: Hysterectomy - Social History Smoking Status: Never smoker Exposure to second hand smoke: No Drug Use: none Patient Lives Alone: No Significant Family History: diabetes, hypertension - Physical Exam General Appearance: no apparent distress, alert, obese Eye Exam: PERRL/EOMI, eyes nml inspection Ears, Nose, Throat Exam: normal ENT inspection, moist mucous membranes Neck Exam: normal inspection, non-tender, supple, full range of motion Respiratory Exam: airway intact, No chest tenderness, No respiratory distress Gastrointestinal/Abdomen Exam: No tenderness Pelvic Exam: not done Rectal Exam: not done Back Exam: normal inspection, normal range of motion, No CVA tenderness Extremity Exam: normal range of motion, pelvis stable, other (Bilateral inguinal surgical incision sites with running Prolene suture present. There is mild skin dehiscence in the proximal portion of the left postop wound site also with fibrinous exudate. No odor. No drainage. No redness) Skin Exam: other (See above) Lymphatic Exam: No adenopathy SpO2 Interpretation: normal O2 Delivery: Room Air - Progress Progress: improved, re-examined Progress Note: 09/24/21 09:26 Medical decision making: This patient had a surgical procedure done well over 15 days ago. The wounds were examined and and the suture should be removed today. She had an appointment to see her surgeon today in [facility] but she said that she cannot make it up there and she wants to sutures out. The incision sites for the most part intact. There is some mild skin dehiscence but filled in with fibrinous exudate on the left inguinal incision site. There is no drainage. There is no odor. There is no redness. There is no pus. The sutures are very loose and I do not think they are providing any benefit for the incision sites. We will remove them and place her on antibiotics and she is to call her surgeon today to make arrangements for follow-up for an additional wound check for later this week Counseled pt/family regarding: diagnosis, need for follow-up - Departure Departure Disposition: Home Clinical Impression: Visit for wound check, Encounter for removal of sutures, Postoperative dehiscence of skin wound Condition: Stable Critical Care Time: No Referrals: ANIL LEÓN [Primary Care Provider] - Follow up/PCP as directed Additional Instructions: Keep the postoperative sites clean daily with soap and water. Dry them with hairdryer. Take your antibiotics as prescribed. Call your surgeon's office today and make another appointment for later in the week so they can evaluate the wounds. Prescriptions: Cephalexin Mh 500 mg [Keflex 500 mg] 500 mg PO TID #21 cap
[2021-09-24 09:29] VITALS: BP 150/71; O2SAT 99
[2021-09-24 10:09] VITALS: PULSE 80
== END 2021-09-24 10:09 | disposition home or self-care (01) ==
LOC: ED 09:06
DX: Z48.02 Encounter for removal of sutures (principal); Z48.00 Encounter for change or removal of nonsurgical wound dressing; T81.31XA Disruption of external operation (surgical) wound, not elsewhere classified, initial encounter; I10 Essential (primary) hypertension; E78.5 Hyperlipidemia, unspecified; E11.9 Type 2 diabetes mellitus without complications; Z79.84 Long term (current) use of oral hypoglycemic drugs; Z79.899 Other long term (current) drug therapy
CPT/HCPCS: 99282